=== PATIENT | male | born 1955 | race Caucasian/White ===

== ENCOUNTER 2022-01-26 20:56 | Emergency (ER) | payer MEDICARE, SELFPAY ==
[2022-01-26] VITALS (17 sets, daily range): BP systolic 120–179; BP diastolic 62–82; PULSE 63–89; RESP 16; TEMP 36.2; O2SAT 97–100
--- NOTE | ~2022-01-26 | CT_ITS ---
EXAMINATION: CT cervical spine wo con DATE: 01/26/2022 21:26 INDICATION: Fall, head injury. TECHNIQUE: Computed tomography (CT) of the cervical spine was performed without intravenous contrast. Automated exposure control and iterative reconstruction technique were employed. The dose-length pro duct was 436.07 mGy-cm. COMPARISON: None FINDINGS: Counting reference: Craniocervical junction. There are seven cervical type vertebral bodies.. Anatomic Variants: Bone island in the C4 vertebral body. Unfused C1 posterior arch. Vertebral Body Alignment: Intact. Craniocervical junction: Mild degenerative change. Alignment intact. Osseous structures/fracture: No evidence of a lytic or blastic process in the visualized spine. N o evidence of acute fracture. Cervical soft tissues: The paraspinal soft tissues planes are maintained. Retropharyngeal course o f the right internal carotid artery. Degenerative changes: Multilevel degenerative disc disease. Multilevel bilateral severe neural forami nal narrowing no severe central canal narrowing IMPRESSION: No acute fracture or traumatic malalignment in the cervical spine. Reviewed, dictated and finalized at location K.
--- NOTE | ~2022-01-26 | CT_ITS ---
EXAMINATION: CT brain wo con DATE: 01/26/2022 21:26 INDICATION: TECHNIQUE: Computed tomography (CT) of the head was performed without intravenous contrast. The dose- length product was 605.33 mGy-cm. COMPARISON: None FINDINGS: No acute intracranial hemorrhage or extra-axial fluid collection. No hydrocephalus, mass, or herniation. No acute ischemic infarct. Unremarkable dural venous sinus attenuation. No acute osseous abnormality. Right anterior ethmoid air cell mucosal thickening. Trace left mastoid effusion without evidence of t emporal bone fracture. Otherwise the aerated spaces are clear. Mild atrophy and chronic white matter change. Atherosclerotic intracranial arterial calcification. IMPRESSION: No acute intracranial process. Reviewed, dictated and finalized at location K.
--- NOTE | 2022-01-26 21:06 | ED.FALL ---
HPI - Fall General Chief Complaint: Fall <CASSIUS Harmon Last Filed: 01/27/22 03:33> Stated Complaint: FALL <CASSIUS Harmon Last Filed: 01/27/22 03:33> Source: patient <CASSIUS Harmon Last Filed: 01/27/22 03:33> Mode of arrival: EMS <CASSIUS Harmon Last Filed: 01/27/22 03:33> Limitations: no limitations <CASSIUS Harmon Last Filed: 01/27/22 03:33> History of Present Illness HPI Narrative: Patient is a 66-year-old male who presents the ED via EMS with report of a fall. Patient reports he was at [employer] tonight when he slipped on the wet concrete floor on the inside and fell backwards hitting his head. No LOC. He did sustain a small abrasion to his posterior head. EMS was called. He initially complained of posterior neck pain upon EMSs arrival. C-collar was placed. Patient denies feeling any prodromal symptoms prior to the fall, no chest pain, shortness of breath, lightheadedness, headache prior to the fall. He does report having slight dizziness and difficulty focusing on things at this time, but denies any nausea, vomiting, diplopia, blurry vision, weakness, confusion. Patient takes an aspirin 81 mg daily. No other blood thinners. No complaints of other musculoskeletal injuries. <CASSIUS Harmon Last Filed: 01/27/22 03:33> Related Data Home Medications: Home Medications Medication Instructions Recorded Confirmed Fish Oil 1,000 mg pe PO DAILY 01/26/22 01/26/22 aspirin 81 mg PO DAILY 01/26/22 01/26/22 atorvastatin 01/26/22 <CASSIUS Harmon Last Filed: 01/27/22 03:33> Allergies/Adverse Reactions: Allergies Allergy/AdvReac Type Severity Reaction Status Date / Time No Known Allergies Allergy Verified 01/26/22 21:07 <CASSIUS Harmon Last Filed: 01/27/22 03:33> Review of Systems Review of Systems: CONSTITUTIONAL: Denies fever, chills. EYES: Reports trouble focusing. Denies visual changes. CARDIOVASCULAR: Denies chest pain. RESPIRATORY: Denies dyspnea. GASTROINTESTINAL: Denies abdominal pain, nausea, vomiting, or diarrhea. MUSCULOSKELETAL: Reports posterior neck pain. Denies back pain. NEUROLOGIC: Reports HI, headache, dizziness. Denies LOC, numbness, confusion, or weakness. <Tati Hathaway PA-C - Last Filed: 01/27/22 03:33> All systems reviewed & are unremarkable except as noted in HPI and below <Tati Hathaway PA-C - Last Filed: 01/27/22 03:33> PMFSH Past Medical History Medical History: Medical History (Updated 01/26/22 @ 22:32 by Tati Hathaway PA-C) Hyperlipidemia Hypertension <Tati Hathaway PA-C - Last Filed: 01/27/22 03:33> Surgical History Surgical History: Surgical History (Updated 01/26/22 @ 21:18 by Tati Hathaway PA-C) History of bilateral knee replacement History of shoulder replacement <Tati Hathaway PA-C - Last Filed: 01/27/22 03:33> Social History Social History: Social History (Updated 01/26/22 @ 21:18 by Tati Hathaway PA-C) Smoking status: Never smoker <Tati Hathaway PA-C - Last Filed: 01/27/22 03:33> Exam Narrative: GENERAL: Well appearing, well-nourished, non-toxic, in no acute distress. HEAD: Normocephalic. Mild soft tissue swelling and minor abrasion to posterior scalp. No active bleeding. EYES: PERRL/EOMI, conjunctivae clear bilaterally. No raccoon eyes. NOSE: Normal, no drainage. EARS: TMS clear, with good light reflex. No erythema or bulging. No hemotympanum. No mi sign. NECK: Supple. No adenopathy, no masses. No midline spinal tenderness to palpation. Mild paraspinal muscle tenderness bilaterally. RESPIRATORY: Airway patent, respirations nonlabored. Clear to auscultation bilaterally, no rales, rhonchi, wheezing. CARDIOVASCULAR: Regular rate and rhythm without murmurs, rubs, or gallops. Peripheral pulses 2+ and equal bilaterally. ABDOMINAL: Soft, nontender, nondistended, no hepatosplenomegaly. Normoactive BS. MUSCULOSKELETAL: M
--- NOTE | 2022-01-26 21:18 | ECG_ITS ---
Measurements Intervals [place] Rate: 59 P: 66 [place]: 141 QRS: 14 QRSD: 100 T: 35 QT: 396 QTc: 395 Interpretive Statements SINUS BRADYCARDIA POSSIBLE RIGHT VENTRICULAR CONDUCTION DELAY [RSR (QR) IN V1/V2] BORDERLINE ECG NO PREVIOUS ECG AVAILABLE FOR COMPARISON Electronically Signed On 01-27-2022 16:46:47 CDT by Anival Schneider M.D.
[2022-01-26 21:59] LABS: Basophils Percent Auto 0.7 % (0.2-1.2); Eosinophils Absolute Auto 0.2 K/mm3 (0-0.3); Eosinophils Percent Auto 2.8 % (0-4.4); Hematocrit 40.1 % (42.0-52.0); Hemoglobin 13.9 g/dL (14.0-18.0); Immature Granulocyte Absolute 0.02 K/mm3 (0.00-0.031); Immature Granulocyte Percent A 0.3 % (0-0.5); Lymphocytes Absolute Auto 1.39 K/mm3 (0.9-3.2); Lymphocytes Percent Auto 22.8 % (18.3-44.2); Mean Corpuscular HGB Conc 34.7 g/dl (32-36); Mean Corpuscular Hemoglobin 30.8 pg (26-34); Mean Corpuscular Volume 88.9 fl (80-100); Mean Platelet Volume 10.3 fl (7.4-10.4); Monocytes Absolute Auto 0.5 K/mm3 (0.1-0.6); Monocytes Percent Auto 8.4 % (2.6-8.5); Platelet Count Result 188 k/mm3 (150-375); Red Blood Count 4.51 M/mm3 (4.6-6.20); Red Cell Distribution Width 12.6 % (11.5-14.5); White Blood Count 6.1 K/mm3 (4.5-10.0)
[2022-01-26 22:06] LABS: Alanine Aminotransferase 31 U/L (4-50); Albumin Level 4.3 g/dL (3.5-5.1); Alkaline Phosphatase 80 U/L (38-126); Anion Gap 8 mmol/L (8-16); Aspartate Amino Transferase 32 U/L (17-59); Bilirubin,Total 0.5 mg/dL (0.2-1.3); Blood Urea Nitrogen 15 mg/dL (9-20); Calcium 8.5 mg/dL (8.4-10.2); Carbon Dioxide 24 mmol/L (22-30); Chloride 108 mmol/L (98-107); Estimated CRCL calculation 80 ml/min; Estimated Glomerular Filt Rate > 60; Glucose 114 mg/dL (65-110); Potassium 3.8 mmol/L (3.4-5.0); Sodium 140 mmol/L (137-145)
[2022-01-26 22:09] LABS: INR 1.1; Prothrombin Time 13.5 Seconds (11.1-14.7)
[2022-01-26 22:10] LABS: Partial Thromboplastin Time 30.5 SECONDS (22.3-36.8)
[2022-01-26] MEDS: ONDANSETRON INJ 4 MG/2 ML VIAL IV PUSH (22:38)
[2022-01-26] MEDS: MECLIZINE HCL 25 MG TABLET PO (22:42)
--- NOTE | 2022-01-26 23:38 | PC.NURSE ---
RN ambulted pt around room. Pt reports feeling a little dizzy but feels safe going home. Pts at bedside agress with pt going home. MARIA M Duffy made aware.
== END 2022-01-27 | disposition home or self-care (01) ==
PROVIDERS: Physician Assistant; Emergency Provider Emergency Medicine
DX: S06.0X0A Concussion without loss of consciousness, initial encounter (principal); R00.1 Bradycardia, unspecified; R94.31 Abnormal electrocardiogram [ECG] [EKG]; Z96.653 Presence of artificial knee joint, bilateral; Z96.619 Presence of unspecified artificial shoulder joint; Z79.82 Long term (current) use of aspirin; W01.0XXA Fall on same level from slipping, tripping and stumbling without subsequent striking against object, initial encounter
CPT/HCPCS: 36415; 70450; 72125; 80053; 85025; 85610; 85730; 93005; 96365; 96375; 99284; A9270; J0131; J2405; L0140